=== PATIENT | female | born 1980 ===

== ENCOUNTER 2019-10-24 10:00 | Emergency (ER) | payer OTHER ==
[~2019-10-24] VITALS: Ht 147.3 cm; Wt 53.6 kg
[2019-10-24 10:06] VITALS: TEMP 97.6
[2019-10-24] MEDS ORDERED: AUBAGIO14 MG PO (10:21)
[2019-10-24] MEDS ORDERED: EXCEDRIN1 TAB PO (10:21)
[2019-10-24] MEDS ORDERED: AJOVY225 MG/1.5 SQ (10:21)
[2019-10-24 10:25] LABS: EOS # 0.1 (0.0-0.7); EOS % 2.9 % (0-4.0); GRAN # 2.3 (1.4-6.5); GRAN % 55.7 % (42.2-75.2); HEMATOCRIT 40.8 % (37.0-47.0); HEMOGLOBIN 12.3 g/dl (12.5-16.0); LYMPH # 1.1 (1.2-3.4); LYMPH % 27.3 % (20.0-51.0); MEAN CELL VOLUME 84 fl (80.0-100.0); MEAN CORPUSCULAR HEMOGLOBIN 25 pg (27.0-31.0); MEAN CORPUSCULAR HGB CONC 30 g/dl (33.0-37.0); MEAN PLATELET VOLUME 9.6 fl (7.4-10.4); MONO # 0.5 (0.1-0.6); MONO % 12.4 % (1.7-9.3); PLATELET COUNT 204 K/mm3 (130-400); RED BLOOD COUNT 4.84 M/mm3 (4.10-5.30); REDCELL DISTRIBUTION WIDTH-CV 15.7 % (11.5-14.5)
[2019-10-24 10:30] LABS: INR 0.9 (0.8-3.0); PROTHROMBIN TIME 10.2 SECONDS (9.7-12.8)
[2019-10-24 10:31] LABS: ALANINE AMINOTRANSFERASE 74 U/L (4-34); ALBUMIN 4.2 gm/dL (3.5-5.0); ALKALINE PHOSPHATASE 90 U/L (50-136); ANION GAP 4 mmol/L (7-16); AST,SGOT 46 U/L (15-37); BILIRUBIN,TOTAL 0.5 mg/dL (0.0-1.0); BLOOD UREA NITROGEN 13 mg/dL (7-17); CALCIUM 10.4 mg/dL (8.4-10.2); CARBON DIOXIDE 24 mmol/L (22-30); CHLORIDE 108 mmol/L (98-107); CREATININE, serum 0.53 (0.52-1.25); GLUCOSE 93 mg/dL (74-106); LIPASE 79 U/L (23-300); POTASSIUM 3.7 mmol/L (3.4-5.0); SODIUM 136 mmol/L (137-145); TOTAL PROTEIN 7.5 gm/dL (6.4-8.2)
[2019-10-24 10:39] LABS: D-DIMER < 200.00 ng/mLDDu (200-230)
[2019-10-24 10:51] LABS: TROPONIN-I < 0.012 ng/mL (0.000-0.035)
[2019-10-24 11:25] VITALS: BP 128/76; PULSE 87
== END 2019-10-24 11:26 | disposition home or self-care (01) ==
LOC: COL.ER 10:00
PROVIDERS: Emergency Medicine
DX: R07.89 Other chest pain (principal); R06.02 Shortness of breath